=== PATIENT | male | born 1960 | race Caucasian/White ===

== ENCOUNTER 2023-10-01 12:41 | Inpatient (IN) | payer MEDICAID ==
[2023-10-01] VITALS (10 sets, daily range): BP systolic 147–210; BP diastolic 42–77; PULSE 33–80; RESP 18–24; TEMP 98.2–98.3; O2SAT 100
[~2023-10-01] VITALS: Ht 162.6 cm; Wt 77.8 kg
[2023-10-01] MEDS ORDERED: CALCIUM GLUCONATE 1,000 MG in DEXT 5% WATER 100 ML IV ONE (13:00)
[2023-10-01] MEDS: ALBUTEROL (0.083%) 2.5MG/3ML NEB HHN SCH (13:10)
[2023-10-01] MEDS: DEXTROSE 50% WATER 50ML SYRINGE IV ONE (13:11)
[2023-10-01] MEDS: SODIUM BICARBONATE 8.4% 50MEQ/50ML SYR IV ONE ×2 (13:11→14:45)
[2023-10-01] MEDS: CALCIUM GLUCONATE 1GM PREMIX 50 ML IV NR (13:11)
[2023-10-01 13:16] LABS: BASOPHILS % 0.9 % (0.0-2.0); DIFFERENTIAL COMMENT 0; EOSINOPHILS % 0.7 % (0.0-5.0); HEMATOCRIT. 22.5 % (42.0-52.0); HEMOGLOBIN. 7.3 g/dL (14.0-18.0); LYMPHOCYTES % 32.9 % (20.0-50.0); MEAN CORPUSCULAR HGB CONC 32.5 g/dL (31.0-37.0); MEAN CORPUSCULAR VOLUME 101.4 fL (80.0-94.0); MONOCYTES % 5.7 % (2.0-8.0); NEUTROPHILS % 59.8 % (40.0-76.0); PLATELET 117 x1000/uL (130-400); RED BLOOD CELL COUNT 2.22 mill/uL (4.7-6.1); WHITE BLOOD COUNT 7.1 x1000/uL (4.5-11.0)
[2023-10-01 13:25] LABS: CARBON DIOXIDE 21 mEq/L (21-32); CHLORIDE 97 mEq/L (98-107); SODIUM 136 mEq/L (136-145)
[2023-10-01 13:26] LABS: CALCIUM 9.1 mg/dL (8.7-10.4)
[2023-10-01 13:31] LABS: GLUCOSE 213 mg/dL (70-105); UREA NITROGEN BLOOD 82 mg/dL (9-23)
[2023-10-01 13:32] LABS: ALANINE AMINOTRANSFERASE 28 IU/L (10-49); ASPARTATE AMINOTRANSFERASE 27 IU/L (<34)
[2023-10-01 13:33] LABS: ALBUMIN 4.2 g/dL (3.2-4.8); BILIRUBIN DIRECT 0.3 mg/dL (<=3.0); BILIRUBIN TOTAL 0.5 mg/dL (0.1-1.0); CREATINE KINASE 82 IU/L (46-171); PHOSPHORUS 6.4 mg/dL (2.5-4.9); PROTEIN TOTAL 7.3 g/dL (6.0-8.3); TROPONIN I HIGH SENSITIVITY 17 ng/L (3.0-53)
[2023-10-01 13:39] LABS: ETHANOL BLOOD < 10 mg/dL (<10)
[2023-10-01 13:44] LABS: POTASSIUM 7.6 mEq/L (3.5-5.1)
[2023-10-01] MEDS: INSULIN REGULAR (HUMULIN R) 1000UNITS/10ML VIAL IV ONE (13:44)
[2023-10-01 13:55] LABS: LACTIC ACID 6.8 mmol/L (0.4-2.0)
[2023-10-01 14:04] LABS: BG BASE EXCESS -1.7 mmol/L (-2.0-2.0); BG CARBOXYHEMOGLOBIN 0.8 % (0.5-1.5); BG DEOXYHEMOGLOBIN 0.8 % (0.0-5.0); BG FRACTION INSPIRED OXYGEN 60; BG HCO3 ACT 22.5 mmol/L (22.0-26.0); BG METHEMOGLOBIN 0.3 % (0.0-1.5); BG OXYGEN SATURATION 99.2 % (92.0-98.5); BG OXYHEMOGLOBIN 98.1 % (94.0-97.0); BG PCO2 35.3 mmHg (35.0-45.0); BG PH 7.422 (7.350-7.450); BG PO2 178.2 mmHg (75.0-100.0); BG SAMPLE SITE RIGHT RADIAL; BG TOTAL HEMOGLOBIN 7.7 g/dL (12.0-18.0); BG VENT MODE HHN
[2023-10-01] MEDS: PIPERACILLIN/TAZO 3.375G/50ML 50 ML IV STA ×2 (14:46→17:16)
[2023-10-01 14:49] LABS: INR 1.3; PROTHROMBIN TIME 13.9 sec (9.6-11.0)
[2023-10-01 15:28] LABS: HEPATITIS B SURFACE ANTIGEN NEGATIVE (Negative)
[2023-10-01] MEDS: CALCIUM GLUCONATE 1,000 MG in DEXT 5% WATER 100 ML IV ONE (15:29)
[2023-10-01 15:49] LABS: HEPATITIS A AB IGM NEGATIVE (Negative); HEPATITIS B CORE AB IGM NEGATIVE (Negative)
[2023-10-01 15:50] LABS: HEPATITIS C AB NON REACTIVE (Neg) (Negative)
[2023-10-01] MEDS ORDERED: IPRATROPIUM/ALBUTEROL 0.5-3(2.5)MG/3ML NEB HHN PRN (16:15)
[2023-10-01] MEDS ORDERED: DIPHENHYDRAMINE 50MG/ML VIAL IV PRN ×2 (16:15→20:15)
[2023-10-01] MEDS: SODIUM CHLORIDE 0.9% 1,000 ML IV ONE (16:15)
[2023-10-01] MEDS ORDERED: ONDANSETRON HCL 4MG/2ML INJ IV PRN ×2 (16:15→20:15)
[2023-10-01 16:46] LABS: POTASSIUM 6.2 mEq/L (3.5-5.1)
[2023-10-01] MEDS: VANCOMYCIN 1.25GM PMX (XELLIA) 250 ML IV NR (17:30)
[2023-10-01] MEDS ORDERED: ACETAMINOPHEN 325MG TABLET PO PRN ×2 (20:15)
[2023-10-01] MEDS: SODIUM CHLORIDE 0.9% 3ML FLUSH IVF SCH (22:00)
[2023-10-02 02:06] LABS: POTASSIUM 4.1 mEq/L (3.5-5.1)
[2023-10-02 05:38] LABS: BASOPHILS % 0.8 % (0.0-2.0); DIFFERENTIAL COMMENT 0; EOSINOPHILS % 0.4 % (0.0-5.0); LYMPHOCYTES % 14.6 % (20.0-50.0); MEAN CORPUSCULAR HEMOGLOBIN 33.7 pg (28.0-32.0); MEAN CORPUSCULAR HGB CONC 33.9 g/dL (31.0-37.0); MEAN CORPUSCULAR VOLUME 99.4 fL (80.0-94.0); MEAN PLATELET VOLUME 10.3 fl (7.4-10.4); MONOCYTES % 8.9 % (2.0-8.0); NEUTROPHILS % 75.3 % (40.0-76.0); PLATELET 89 x1000/uL (130-400); RED BLOOD CELL COUNT 1.89 mill/uL (4.7-6.1); RED CELL DISTRIBUTION WIDTH 15.8 % (11.6-14.6); WHITE BLOOD COUNT 4.9 x1000/uL (4.5-11.0)
[2023-10-02 05:51] LABS: POTASSIUM 5.2 mEq/L (3.5-5.1)
[2023-10-02 05:52] LABS: CALCIUM 9.2 mg/dL (8.7-10.4)
[2023-10-02 06:11] LABS: CREATININE 6.2 mg/dL (0.6-1.3)
[2023-10-02] MEDS: CLONIDINE 0.1MG TABLET PO PRN (06:52)
[2023-10-02 07:26] LABS: HEMATOCRIT. 18.8 % (42.0-52.0); HEMOGLOBIN. 6.4 g/dL (14.0-18.0)
[2023-10-02 08:11] LABS: IRON 65 ug/dL (65-175)
[2023-10-02 08:14] LABS: TOTAL IRON BINDING CAPACITY 233 ug/dl (250-425)
[2023-10-02] MEDS: SEVELAMER CARBONATE 800 MG TABLET PO SCH (09:28)
[2023-10-02] MEDS: NIFEDIPINE XL 60MG TAB PO SCH (09:28)
[2023-10-02] MEDS: PIPERACILLIN/TAZO 3.375G/50ML 50 ML IV SCH (09:28)
[2023-10-02] MEDS: VANCOMYCIN 750MG PREMIX 150 ML IV SCH (10:39)
[2023-10-02] MEDS: ACETAMINOPHEN 325MG TABLET PO PRN (11:34)
[2023-10-02 13:30] VITALS: BP 161/67; PULSE 62; RESP 18; TEMP 99.1
[2023-10-02 13:31] VITALS: BP 161/67; PULSE 62; RESP 18; TEMP 99.1
[2023-10-02 16:00] VITALS: BP 140/50; PULSE 57; RESP 20; TEMP 98.7
[2023-10-02] MEDS ORDERED: DEXTROSE 50% WATER 50ML SYRINGE IV PRN (16:30)
[2023-10-02] MEDS ORDERED: NIFE20CA PO (17:12)
[2023-10-02] MEDS: BLOOD SUGAR DIAGNOSTIC STRIP TEST SCH (17:33)
[2023-10-02] MEDS: INSULIN LISPRO 100 UNITS/ML SUBCUT SCH (17:34)
[2023-10-02 18:01] LABS: HEMATOCRIT 22.8 % (42.0-52.0); HEMOGLOBIN 7.7 g/dL (14.0-18.0)
[2023-10-02 20:00] VITALS: BP 164/69; PULSE 69; RESP 19; TEMP 98.6
[2023-10-02] MEDS: EPOETIN ALFA-EPBX 4,000 UNIT/ML VIAL SUBCUT SCH (21:25)
[2023-10-02 22:28] VITALS: BP 166/69; PULSE 64
[2023-10-03] VITALS (16 sets, daily range): BP systolic 134–184; BP diastolic 53–93; PULSE 57–74; RESP 16–22; TEMP 98–98.6
[2023-10-03 06:10] LABS: CALCIUM 9.1 mg/dL (8.7-10.4)
[2023-10-03 06:13] LABS: BASOPHILS % 1.1 % (0.0-2.0); EOSINOPHILS % 1.2 % (0.0-5.0); HEMATOCRIT. 23.6 % (42.0-52.0); HEMOGLOBIN. 7.9 g/dL (14.0-18.0); LYMPHOCYTES % 20.2 % (20.0-50.0); MEAN CORPUSCULAR HEMOGLOBIN 33.1 pg (28.0-32.0); MEAN CORPUSCULAR HGB CONC 33.5 g/dL (31.0-37.0); MEAN CORPUSCULAR VOLUME 98.9 fL (80.0-94.0); MEAN PLATELET VOLUME 11.2 fl (7.4-10.4); MONOCYTES % 8.1 % (2.0-8.0); NEUTROPHILS % 69.4 % (40.0-76.0); PLATELET 84 x1000/uL (130-400); RED BLOOD CELL COUNT 2.39 mill/uL (4.7-6.1); RED CELL DISTRIBUTION WIDTH 15.7 % (11.6-14.6)
[2023-10-03 06:17] LABS: PHOSPHORUS 5.4 mg/dL (2.5-4.9)
[2023-10-03 06:20] LABS: CREATININE 8.3 mg/dL (0.6-1.3)
[2023-10-03] MEDS: POLYVINYL ALCOHOL OPHTH DROPS 15ML BOTHEYE PRN (15:49)
[2023-10-03] MEDS: HYDRALAZINE 20MG/ML VIAL IV PRN ×2 (16:17→20:37)
[2023-10-04] VITALS (15 sets, daily range): BP systolic 124–177; BP diastolic 50–82; PULSE 63–74; RESP 16–23; TEMP 97.8–98.8
[2023-10-04 05:40] LABS: BASOPHILS % 0.9 % (0.0-2.0); EOSINOPHILS % 1.4 % (0.0-5.0); HEMOGLOBIN. 7.7 g/dL (14.0-18.0); LYMPHOCYTES % 16.1 % (20.0-50.0); MEAN CORPUSCULAR HEMOGLOBIN 33.3 pg (28.0-32.0); MEAN CORPUSCULAR HGB CONC 33.6 g/dL (31.0-37.0); MEAN PLATELET VOLUME 10.8 fl (7.4-10.4); MONOCYTES % 7.9 % (2.0-8.0); NEUTROPHILS % 73.7 % (40.0-76.0); PLATELET 89 x1000/uL (130-400); RED BLOOD CELL COUNT 2.32 mill/uL (4.7-6.1); RED CELL DISTRIBUTION WIDTH 15.7 % (11.6-14.6); WHITE BLOOD COUNT 5.6 x1000/uL (4.5-11.0)
[2023-10-04 05:43] LABS: DIFFERENTIAL COMMENT 1
[2023-10-04 05:58] LABS: POTASSIUM 5.4 mEq/L (3.5-5.1)
[2023-10-04 05:59] LABS: CALCIUM 8.9 mg/dL (8.7-10.4)
[2023-10-04 06:16] LABS: CREATININE 7.4 mg/dL (0.6-1.3)
[2023-10-05] VITALS: BP 149/50; PULSE 71; RESP 16; TEMP 98.4
[2023-10-05 04:00] VITALS: BP 161/56; PULSE 65; TEMP 98.6
[2023-10-05 06:27] LABS: BASOPHILS % 0.9 % (0.0-2.0); EOSINOPHILS % 1.6 % (0.0-5.0); HEMATOCRIT. 22.5 % (42.0-52.0); HEMOGLOBIN. 7.6 g/dL (14.0-18.0); LYMPHOCYTES % 21.9 % (20.0-50.0); MEAN CORPUSCULAR HEMOGLOBIN 33.2 pg (28.0-32.0); MEAN CORPUSCULAR HGB CONC 33.6 g/dL (31.0-37.0); MEAN CORPUSCULAR VOLUME 98.7 fL (80.0-94.0); MEAN PLATELET VOLUME 10.8 fl (7.4-10.4); MONOCYTES % 9.2 % (2.0-8.0); NEUTROPHILS % 66.4 % (40.0-76.0); PLATELET 90 x1000/uL (130-400); RED BLOOD CELL COUNT 2.28 mill/uL (4.7-6.1); RED CELL DISTRIBUTION WIDTH 15.5 % (11.6-14.6)
[2023-10-05 06:49] LABS: POTASSIUM 4.3 mEq/L (3.5-5.1)
[2023-10-05 06:59] LABS: CREATININE 6.2 mg/dL (0.6-1.3)
[2023-10-05 08:00] VITALS: BP 156/57; PULSE 64; RESP 20; TEMP 98.1
[2023-10-05 12:00] VITALS: BP 147/60; PULSE 63; RESP 13; TEMP 98.2
[2023-10-05 16:00] VITALS: BP 152/60; PULSE 61; RESP 22; TEMP 98.2
[2023-10-05 20:00] VITALS: BP 171/65; PULSE 70; RESP 23; TEMP 97.1
[2023-10-05] MEDS: CARVEDILOL 3.125 MG TABLET PO SCH (20:45)
[2023-10-06] VITALS (16 sets, daily range): BP systolic 135–168; BP diastolic 52–78; PULSE 61–67; RESP 16–20; TEMP 97.8–98.5; O2SAT 98
[2023-10-06 07:29] LABS: BASOPHILS % 1.1 % (0.0-2.0); EOSINOPHILS % 2.2 % (0.0-5.0); HEMATOCRIT. 25.2 % (42.0-52.0); HEMOGLOBIN. 8.4 g/dL (14.0-18.0); LYMPHOCYTES % 21.6 % (20.0-50.0); MEAN CORPUSCULAR HEMOGLOBIN 33.2 pg (28.0-32.0); MEAN CORPUSCULAR HGB CONC 33.2 g/dL (31.0-37.0); MEAN CORPUSCULAR VOLUME 99.9 fL (80.0-94.0); MEAN PLATELET VOLUME 10.4 fl (7.4-10.4); MONOCYTES % 8.7 % (2.0-8.0); NEUTROPHILS % 66.4 % (40.0-76.0); PLATELET 102 x1000/uL (130-400); RED BLOOD CELL COUNT 2.52 mill/uL (4.7-6.1); RED CELL DISTRIBUTION WIDTH 15.4 % (11.6-14.6); WHITE BLOOD COUNT 4.2 x1000/uL (4.5-11.0)
[2023-10-06 07:36] LABS: POTASSIUM 4.7 mEq/L (3.5-5.1)
[2023-10-06 07:37] LABS: CALCIUM 9.4 mg/dL (8.7-10.4)
[2023-10-06 07:43] LABS: CREATININE 8.5 mg/dL (0.6-1.3)
[2023-10-06 07:44] LABS: PHOSPHORUS 6.5 mg/dL (2.5-4.9)
[2023-10-06 07:47] LABS: VITAMIN B12 SERUM 1484 pg/mL (211-911)
[2023-10-06 07:49] LABS: FOLIC ACID (FOLATE) SERUM 10.48 ng/mL (>5.38)
[2023-10-06] MEDS: SEVELAMER CARBONATE 800 MG TABLET PO SCH (08:45)
[2023-10-06] MEDS: OMEPRAZOLE 20MG CAPSULE EXTENDED RELEASE PO SCH (08:45)
== END 2023-10-06 15:25 | disposition home or self-care (01) | DRG 425 ==
LOC: ER 13:16 → EDBEDREQTM 14:51 → EDBEDREQ 14:51 → MICUSO 16:51 → EDBEDREQ 16:54 → EDBEDREQSVC 17:51 → 5EST 10-02 13:46 → 7WST 10-05 23:18
PROVIDERS: ADMIT Internal Medicine; ATTEND Internal Medicine
PROC: 5A1D70Z Performance of Urinary Filtration, Intermittent, Less than 6 Hours Per Day (ICD-10-PCS; principal; 2023-10-01)
PROC: 30233N1 Transfusion of Nonautologous Red Blood Cells into Peripheral Vein, Percutaneous Approach (ICD-10-PCS; 2023-10-02)
PROC: 5A1D70Z Performance of Urinary Filtration, Intermittent, Less than 6 Hours Per Day (ICD-10-PCS; 2023-10-03)
PROC: 5A1D70Z Performance of Urinary Filtration, Intermittent, Less than 6 Hours Per Day (ICD-10-PCS; 2023-10-04)
PROC: 5A1D70Z Performance of Urinary Filtration, Intermittent, Less than 6 Hours Per Day (ICD-10-PCS; 2023-10-06)
DX: E87.5 Hyperkalemia (principal); I13.2 Hypertensive heart and chronic kidney disease with heart failure and with stage 5 chronic kidney disease, or end stage renal disease; E87.20 Acidosis, unspecified; D69.6 Thrombocytopenia, unspecified; D63.8 Anemia in other chronic diseases classified elsewhere; I95.9 Hypotension, unspecified; N18.6 End stage renal disease; Z99.2 Dependence on renal dialysis; K92.1 Melena; Z82.49 Family history of ischemic heart disease and other diseases of the circulatory system; Z87.01 Personal history of pneumonia (recurrent); R00.1 Bradycardia, unspecified
CPT/HCPCS: 36415; 36600; 71045; 80048; 80076; 80202; 80320; 82270; 82375; 82550; 82607; 82746; 82805; 82962; 83036; 83540; 83550; 83605; 83735; 83880; 84100; 84132; 84145; 84484; 85014; 85018; 85025; 85044; 86705; 86709; 86850; 86900; 86920; 87340; 87804; 90935; 93005; 93306; 93970; 94640; 99291; 99292; J0360; J0610; J0885; J1815; J2543; J3370; J3490; J7030; J7060; P9016; G0480